=== PATIENT | male | born 1975 | race Caucasian/White ===

== ENCOUNTER 2022-09-19 19:24 | Emergency (ER) | payer OTHER ==
[2022-09-19] MEDS ORDERED: Ibuprofen 200 MG Tab PO ONE (19:34)
[2022-09-19] MEDS ORDERED: Dexamethasone 4 MG/ML SDV IM ONE (19:34)
[2022-09-19] MEDS ORDERED: Dexamethasone 4 MG/ML SDV ONE (20:13)
[2022-09-19] MEDS ORDERED: Albuterol 90 MCG/6.7 GM Inhaler INH ONE ×2 (20:30→20:33)
== END 2022-09-19 20:50 | disposition home or self-care (01) ==
LOC: CC.ED 19:24
DX: J40 Bronchitis, not specified as acute or chronic (principal); Z79.899 Other long term (current) drug therapy; Z20.822 Contact with and (suspected) exposure to COVID-19
CPT/HCPCS: 87804; 96372; 99284; A9270-GY; J1100; U0002